=== PATIENT | female | born 1985 | race Caucasian/White ===

== ENCOUNTER 2016-04-01 12:03 | Emergency (ER) | payer OTHER ==
[~2016-04-01] VITALS: Ht 167.6 cm; Wt 105.9 kg
[~2016-04-01 12:03] MED LIST: AMOX TR-K CLV1 EAC4 PO; AMOXICILLIN500 MG PO; AMOXICILLIN875 MG PO; AUGMENTIN875 MG PO; ENDOCET 5-3251 EACH PO; FLORASTOR250 MG PO; HUMALOG100 UNIT/1 SC; IBUPROFEN800 MG PO; INSULIN PUMP SCCONT; INSULIN PUMP1 EACH MC; LOVENOX40 MG/0.4 SC; LYRICA75 MG PO; NORCO 5/3251 TABLET PO; ZANTAC75 M1 PO; ZOFRAN4 MG PO
[2016-04-01 12:20] VITALS: BP 130/96
== END 2016-04-01 13:28 | disposition left against medical advice (07) ==
LOC: EME 12:03
DX: R53.83 Other fatigue (principal); Z53.21 Procedure and treatment not carried out due to patient leaving prior to being seen by health care provider